=== PATIENT | female | born 1975 | race Two or more races ===

== ENCOUNTER 2022-06-02 11:44 | Outpatient (CLI) | payer OTHER | END 2022-06-02 11:50 | disposition home or self-care (01) | LOC: SONOGRAMA 11:44 | PROVIDERS: ATTEND Pathology Anatomic Pathology & Clinical Pathology | DX: D34 Benign neoplasm of thyroid gland (principal); E07.9 Disorder of thyroid, unspecified; E04.2 Nontoxic multinodular goiter ==

== ENCOUNTER 2024-09-16 09:24 | Outpatient (CLI) | payer OTHER ==
[2024-09-16] MEDS ORDERED: SYNTHROID137 MCG PO (10:18)
[2024-09-16] MEDS ORDERED: METFORMIN HCL500 M4 PO (10:18)
[2024-09-16] MEDS ORDERED: TOPROL XL100 M1 PO (10:19)
[2024-09-16] MEDS ORDERED: AMLODIPINE BESYL5 MG PO (10:19)
[2024-09-16] MEDS ORDERED: ATORVASTATIN CA10 MG PO (10:20)
[2024-09-16] MEDS ORDERED: NORETHIN-ETH E1 EACH PO (10:20)
[2024-09-16] MEDS ORDERED: XYZAL5 MG PO (10:21)
[2024-09-16] MEDS ORDERED: ALLERGY RELIEF10 M3 PO (10:21)
[2024-09-16 12:07] LABS: CHOL HDL RATIO 4.0 (0-5.0); HDL 46.0 mg/dl (40-60); LDL 105.0 mg/dl (0-130); PHOSPHOKINASE CREATININE 175.0 U/L (26-192); T3 UPTAKE 31.0 % (30-39); T4 TOTAL 12.33 UG/DL (4.8-13.9); TSH 0.535 uIU/mL (0.358-3.74); VLDL 32.0 (0-39)
== END 2024-09-16 09:44 | disposition home or self-care (01) ==
LOC: LAB 09:24
DX: I10 Essential (primary) hypertension (principal); E78.5 Hyperlipidemia, unspecified; E03.9 Hypothyroidism, unspecified

== ENCOUNTER 2024-09-24 05:58 | Day surgery (SDC) | payer OTHER ==
[2024-09-16 10:22] VITALS: BP 171/96
[2024-09-16 10:24] VITALS: BP 150/90
[2024-09-16 11:05] LABS: URINE APPEARANCE Clear; URINE BILIRRUBIN Negative (NEGATIVE); URINE BLOOD Small; URINE COLOR Yellow; URINE GLUCOSE Negative (NEGATIVE); URINE KETONE Negative (NEGATIVE); URINE LEUKOCYTE Negative; URINE NITRATE Negative; URINE PROTEIN Trace (NEGATIVE); URINE UROBILINOGEN 0.2 E.U./dl
[2024-09-16 11:09] LABS: BASO % 0.6 % (0.1-1.2); EOS # 0.09 (0.04-0.54); EOS % 1.3 % (0.7-7.0); LYMPH # 1.79 (1.18-3.74); LYMPH % 26.8 % (19.3-53.1); MEAN PLATELET VOLUME 10.30 fl (9.4-12.4); MONO # 0.50 (0.24-0.82); MONO % 7.5 % (4.7-12.5); NEUT # 4.18 (1.56-6.13); NEUT % 62.6 % (34.0-71.1); RED CELL DISTRIBUTION WIDTH 13.7 % (11.6-14.4); URINE BACTERIA 131.9 uL (0.0-1933); URINE EPITHELIAL CELLS 29.9 uL (0.0-38.8); URINE RBC 15.1 uL (0.0-20.8); URINE WBC 10.9 uL (0.0-23.2)
[2024-09-16 11:39] LABS: INR 0.94
[2024-09-16 11:51] LABS: ALT/SGPT 45.0 U/L (12-78); AST/SGOT 22.0 U/L (15-37); BILIRUBIN TOTAL 0.61 mg/dL (0.3-1.2); BUN CREA RATIO 13.0 (7.0-25.0); CREATININE SERUM 0.7 mg/dL (0.55-1.02); GFR 89.69; GLOBULINA 3.2 G/DL (2.4-3.5); GLUCOSE FASTING 156.0 mg/dL (65-100); OSMOLALITY SERUM 283.0 MOSM/KG (275-295)
[2024-09-16 11:57] LABS: URINE CAST 0.00 uL (0.0-1.40)
[~2024-09-24] VITALS: Ht 162.6 cm; Wt 106.1 kg
[~2024-09-24 05:58] MED LIST: ALLERGY RELIEF10 M3 PO; AMLODIPINE BESYL5 MG PO; ATORVASTATIN CA10 MG PO; METFORMIN HCL500 M4 PO; NORETHIN-ETH E1 EACH PO; SYNTHROID137 MCG PO; TOPROL XL100 M1 PO; XYZAL5 MG PO
[2024-09-24] MEDS ORDERED: BUPIVACAINE HCL 30 ML VIAL IJ ONE (10:00)
[2024-09-24] MEDS ORDERED: CEFAZOLIN SODIUM 1,000 MG VIAL IV ONE (10:00)
[2024-09-24] MEDS ORDERED: ISOPROPYL ALCOHOL 30 ML OUNCE TOP ONE (10:00)
[2024-09-24 12:31] VITALS: BP 134/83; O2SAT 100
== END 2024-09-24 12:10 | disposition home or self-care (01) ==
LOC: CIR.AMB 05:58
PROVIDERS: ATTEND Orthopaedic Surgery Hand Surgery
DX: G56.01 Carpal tunnel syndrome, right upper limb (principal)